=== PATIENT | female | born 1985 | race American Indian/Alaskan Native ===

== ENCOUNTER 2020-02-09 09:14 | Outpatient (CLI) | payer OTHER ==
--- NOTE | 2020-02-09 11:17 | Magnetic Resonance Report ---
BILATERAL BREAST MRI WITH AND WITHOUT CONTRAST CLINICAL INFORMATION/INDICATION: Mastodynia. TECHNICAL: Coronal STIR, axial T1 and T2-weighted fat sat images were obtained precontrast. Gadoliniu m-based contrast was injected intravenously and serial axial T1 weighted images with fat saturation w ere obtained. 3-D MIP projections, kinetic analysis and subtraction imaging was utilized to evaluate. A dedicated 8-channel breast coil was used for image acquisition. COMPARISON: 08/03/2019. FINDINGS: Right breast: Heterogeneous fibroglandular tissue is noted with moderate background enhancement. No m ass, other suspicious enhancement, lymphadenopathy or other significant abnormality is seen. Left breast: Heterogeneous fibroglandular tissue is noted with moderate background enhancement. No ma ss, other suspicious enhancement, lymphadenopathy or other significant abnormality is seen. Additional findings: None. IMPRESSION: No evidence of malignancy. Continued annual screening mammography is recommended beginning at the age of 40. Follow up recommendation:Unless otherwise clinically indicated, recommend patient return to routine s creening mammography at age 41. BI-RADS Category 1: Negative. Signer Name: Gianfranco Dennis MD Signed: 02/09/2020 11:13 AM Workstation Name: [id number]
== END 2020-02-09 09:15 | disposition home or self-care (01) ==
LOC: SPVIMAG 09:14
PROVIDERS: ATTEND Surgery
DX: N64.89 Other specified disorders of breast (principal); N64.4 Mastodynia
CPT/HCPCS: A9577; C8908; 77049